=== PATIENT | male | born 1960 | race Caucasian/White ===

== ENCOUNTER 2016-07-19 19:35 | Outpatient (CLI) | payer OTHER | END 2016-07-19 19:36 | disposition home or self-care (01) | DX: G47.33 Obstructive sleep apnea (adult) (pediatric) (principal); G47.61 Periodic limb movement disorder; Z68.34 Body mass index [BMI] 34.0-34.9, adult ==

== ENCOUNTER 2016-09-14 14:47 | Outpatient (CLI) | payer OTHER | END 2016-09-14 14:48 | disposition home or self-care (01) | DX: G47.33 Obstructive sleep apnea (adult) (pediatric) (principal) ==

== ENCOUNTER 2016-11-23 15:13 | Outpatient (CLI) | payer OTHER | END 2016-11-23 15:14 | disposition home or self-care (01) | LOC: SC 15:13 | PROVIDERS: ATTEND Nurse Practitioner Family | DX: G47.33 Obstructive sleep apnea (adult) (pediatric) (principal) | CPT/HCPCS: 99212; 99213 ==

== ENCOUNTER 2019-06-15 10:20 | Outpatient (CLI) | payer OTHER ==
[2019-06-15 10:44] LABS: BASOPHILS # (AUTO) 0.1 10^3/uL (0.0-0.1); BASOPHILS % (AUTO) 0.6 %; EOSINOPHILS # (AUTO) 0.2 10^3/uL (0.0-0.7); EOSINOPHILS % (AUTO) 2.3 %; HGB - HEMOGLOBIN 15.2 g/dL (14.0-18.0); LYMPHOCYTES # (AUTO) 1.7 10^3/uL (1.5-3.5); LYMPHOCYTES % (AUTO) 19.6 %; MEAN CORPUSCULAR HEMOGLOBIN 30.5 pg (27.0-31.0); MEAN CORPUSCULAR HGB CONC 34.2 g/dL (32.0-36.0); MEAN CORPUSCULAR VOLUME 89.2 fL (80.0-94.0); MEAN PLATELET VOLUME 9.3 fL (7.4-11.4); MONOCYTES # (AUTO) 0.7 10^3/uL (0.0-1.0); NEUTROPHILS # (AUTO) 6.1 10^3/uL (1.5-6.6); NEUTROPHILS % (AUTO) 69.2 %; PLT - PLATELET COUNT 199 10^3/uL (130-450); RED BLOOD COUNT 4.98 10^6/uL (4.70-6.10); RED CELL DISTRIBUTION WIDTH 13.5 % (12.0-15.0); WHITE BLOOD COUNT 8.8 x10^3/uL (4.8-10.8)
[2019-06-15 11:05] LABS: ALBUMIN 4.4 g/dL (3.2-5.5); ALBUMIN/GLOBULIN RATIO 1.6 (1.0-2.2); BILIRUBIN,TOTAL 0.4 mg/dL (0.2-1.0); CALCIUM 9.8 mg/dL (8.5-10.3); CREATININE 0.7 mg/dL (0.6-1.2); TOTAL PROTEIN 7.2 g/dL (6.7-8.2)
== END 2019-06-15 10:21 | disposition home or self-care (01) ==
LOC: LAB 10:20
PROVIDERS: ATTEND Internal Medicine Gastroenterology
DX: I10 Essential (primary) hypertension (principal)
CPT/HCPCS: 36415; 80053; 85025

== ENCOUNTER 2019-06-26 12:41 | Day surgery (SDC) | payer OTHER ==
[2019-06-26] MEDS ORDERED: LACTATED RINGERS 1,000 ML IV ONE (13:06)
[2019-06-26] MEDS ORDERED: fentaNYL 250 MCG/5 ML VIAL IVP ONE (14:10)
[2019-06-26] MEDS ORDERED: MIDAZOLAM 2 MG/2 ML VIAL IVP ONE (14:10)
[2019-06-26 15:01] VITALS: BP 97/67
== END 2019-06-26 12:42 | disposition home or self-care (01) ==
LOC: SDS 12:41
PROVIDERS: ATTEND Internal Medicine Gastroenterology
PROC: 0DJD8ZZ Inspection of Lower Intestinal Tract, Via Natural or Artificial Opening Endoscopic (ICD-10-PCS; principal; 2019-06-26 14:15)
DX: Z12.11 Encounter for screening for malignant neoplasm of colon (principal); I10 Essential (primary) hypertension; F41.9 Anxiety disorder, unspecified; E66.9 Obesity, unspecified; Z68.38 Body mass index [BMI] 38.0-38.9, adult; M54.89 Other dorsalgia; F10.21 Alcohol dependence, in remission
CPT/HCPCS: 45378; J3010; J7120

== ENCOUNTER 2020-01-24 21:28 | Emergency (ER) | payer OTHER ==
--- NOTE | 2020-01-24 21:39 | ED Physician Documentation ---
History of Present Illness - Stated complaint Stated Complaint: HAND LACS - History obtained from History obtained from: Patient (59-year-old male who is right-hand dominant comes in tonight with a injury to 3 fingers of his left hand after he was using a table saw he has lacerations to the distal aspects of his second third and fourth fingers. Otherwise denies any other complaints.) - Additonal information Additional information: 59-year-old male was using a table saw tonight when he injured 3 fingers on his left hand. Denies any other complaints. Review of Systems Constitutional: reports: Reviewed and negative Eyes: reports: Reviewed and negative Ears: reports: Reviewed and negative Nose: reports: Reviewed and negative Throat: reports: Reviewed and negative Cardiac: reports: Reviewed and negative Respiratory: reports: Reviewed and negative GI: reports: Reviewed and negative : reports: Reviewed and negative Skin: reports: Reviewed and negative Musculoskeletal: reports: Other (left hand finger lacerations from table saw) Neurologic: reports: Reviewed and negative Psychiatric: reports: Reviewed and negative Endocrine: reports: Reviewed and negative Immunocompromised: reports: Reviewed and negative PD PAST MEDICAL HISTORY - Past Medical History Cardiovascular: Hypertension, High cholesterol Respiratory: None, Sleep apnea Endocrine/Autoimmune: None GI: GERD : None Psych: Anxiety - Past Surgical History Past Surgical History: Yes Ortho: Spine surgery - Present Medications Home Medications: Ambulatory Orders Medication Instructions Recorded Confirmed Benzonatate [Tessalon] 100 mg PO TID PRN #20 capsule 06/18/13 Felodipine [Felodipine ER] 10 mg PO DAILY 06/18/13 06/18/13 Olmesartan/Hydrochlorothiazide 1 each PO DAILY 06/18/13 06/18/13 [Benicar Hct 40-25 mg Tablet] Oseltamivir [Tamiflu] 75 mg PO BID #9 capsule 06/18/13 Sertraline HCl 50 mg PO DAILY 06/18/13 06/18/13 guaiFENesin/CODEINE [Robitussin AC] 10 ml PO Q6H PRN #120 ml 06/18/13 Cephalexin [Keflex] 500 mg PO QID 10 Days #40 capsule 01/25/20 HYDROcod/ACETAM 5/325 [[place] 5/325] 1 - 2 ea PO Q6H PRN #15 tablet 01/25/20 - Allergies Allergies/Adverse Reactions: Allergies Allergy/AdvReac Type Severity Reaction Status Date / Time No Known Drug Allergies Allergy Verified 06/18/13 11:39 - Social History Does the pt smoke?: No Smoking Status: Never smoker Does the pt drink ETOH?: Yes Does the pt have substance abuse?: No - POLST Patient has POLST: No PD ED PE NORMAL - Vitals Vital signs reviewed: Yes - General General: Alert and oriented X 3, No acute distress - HEENT HEENT: PERRL - Neck Neck: Supple, no meningeal sign - Cardiac Cardiac: RRR, No murmur - Respiratory Respiratory: Clear bilaterally - Abdomen Abdomen: Normal bowel sounds, Soft, Non tender, Non distended - Derm Derm: Warm and dry - Extremities Extremities: No deformity - Neuro Neuro: Alert and oriented X 3 - Psych Psych: Normal mood, Normal affect - Free text exam Free text exam: The index finger of the left hand has a distal laceration distal to the DIP join t there is some involvement of the nailbed. The compartments are soft sensations intact to light touch neurovascularly intact. The middle finger of the left hand has a more complex distal laceration with involvement of the nailbed and avulsion of tissue there is sensations intact light touch gamaliel rtments are soft full range of motion of all the fingers on passive and active range of motion at the DIP joints. The ring finger of the left hand has a superficial laceration distal to the DIP joint on the palmar aspect with no involvement of the nailbed. PD ED PE EXPANDED - Extremities VIOLET UE/Hands Visual: 1 - laceration 2 - laceration 3 - laceration 4 - laceration 5 - laceration Results - Vitals Vitals: Vital Signs - 24 hr 01/24/20 01/25/20 21:32 00:50 Temperature 36.4 C L Heart Rate 56 L 58 L Respiratory 16 18 Rate Blood Pressure 108/70 129/69 O2 Saturation 94 99 Oxygen O2 Source Room air Procedures - General procedure General procedure: Left hand of the middle finger there were 5 simple interrupted sutures using 4-0 nylon. The digit was anesthetized with 3 cc of 1% lidocaine using a digital block. With good anesthesia wound was thoroughly Ilich irrigated no foreign bodies identified there is no damage to the nailbed and the nail itself the wound edges were well approximated using 4 simple interrupted sutures using 4-0 nylon no foreign bodies identified wound was irrigated copiously with 500 cc of sterile saline.The index finger was anesthetized with 3 cc 1% lidocaine with epi using a digital block with good anesthesia achieved wound was thoroughly irrigated no foreign bodies identified there is damage to the nailbed the wound was closed using 4 simple interrupted sutures using 4-0 nylon. With good wound edge approximation. The laceration to the distal aspect of the ring finger is superficial in nature it was thoroughly irrigated no foreign bodies identified bacitracin was applied and tube gauze dressing was applied to all 3 digits postanesthesia and suture repair he is neurovascular intact his compartments are soft. Is able to flex and extend at all of the IP joints on passive and active range of motion. PD MEDICAL DECISION MAKING - ED course Complexity details: considered differential (2,3,4th distal finger lacerations to left hand. distal phalange fractures) - Consults Consults: Consulted (name) (dr. francisco.), Discussed case with (dr. francisco. recommends to loosely approximate tissue, update tetanus, abx, dressing and he will see in clinic today for more definitive repair.) Departure - Departure Disposition: 01 Home, Self Care Clinical Impression: Laceration of finger of left hand Qualifiers: Encounter type: initial encounter Finger: unspecified finger Damage to nail status: with damage Foreign body presence: unspecified Qualified Code(s): S61.319A - Laceration without foreign body of unspecified finger with damage to nail, initial encounter Laceration of multiple sites of left hand and fingers Qualifiers: Encounter type: initial encounter Qualified Code(s): S61.412A - Laceration without foreign body of left hand, initial encounter; S61.219A - Laceration without foreign body of unspecified finger without damage to nail, initial encounter Fracture, finger, distal phalanx, open Qualifiers: Encounter type: initial encounter Finger: middle finger Fracture alignment: displaced Laterality: left Qualified Code(s): S62.633B - Displaced fracture of distal phalanx of left middle finger, initial encounter for open fracture Condition: Stable Instructions: ED Laceration Hand Follow-Up: KRUNAL SPRAGUE ARNP [Primary Care Provider] - Hank Francisco MD [Provider Admit Priv/Credential] - 01/25/20 Prescriptions: Cephalexin [Keflex] 500 mg PO QID 10 Days #40 capsule HYDROcod/ACETAM 5/325 [[place] 5/325] 1 - 2 ea PO Q6H PRN #15 tablet PRN Reason: Pain Comments: call the orthopedic surgeon today to schedule follow up today. take antibiotics as directed. Discharge Date/Time: 01/25/20 01:00
[2020-01-24] MEDS ORDERED: TETANUS/DIPHTHERIA/PERTUSSIS 0.5 ML SYRINGE IM ONE (21:46)
[2020-01-24] MEDS ORDERED: BACITRACIN ZINC OINT 1 PACKET TOP STA (21:49)
[2020-01-24] MEDS ORDERED: LIDOCAINE 1%-EPI 1:100000 20 ML MDV SUBQ STA (22:50)
[2020-01-25] MEDS ORDERED: cephALEXin 250 MG CAPSULE PO STA (00:21)
[2020-01-25] MEDS ORDERED: HYDROcod/ACETAM 5/325 MG TABLET PO STA (00:21)
[2020-01-25] MEDS ORDERED: BACITRACIN ZINC OINT 1 PACKET TOP STA (00:25)
[2020-01-25 00:50] VITALS: BP 129/69
--- NOTE | 2020-01-25 07:57 | XRAY Report ---
PROCEDURE: Hand 3 View LT INDICATIONS: fingers vs table saw [exam sent to [facility]] TECHNIQUE: 3 views of the hand(s) acquired. COMPARISON: None FINDINGS: Bones: Markedly comminuted shaft and distal tuft fracture of the distal phalanx of the third finger. Comminuted distal tuft fracture of the distal phalanx of the second finger. No suspicious bony lesion s. Soft tissues: No suspicious soft tissue calcifications. Soft tissue lacerations associated with the second and third digit distal phalanx fractures. IMPRESSION: Fractures of the distal phalanges of the second and third fingers with associated soft tissue lacerat ions. A preliminary report with the above findings was provided at the time of the study by [facility]. Reviewed by: Westley Medellin MD on 01/25/2020 7:56 AM PDT Approved by: Westley Medellin MD on 01/25/2020 7:56 AM PDT Station ID: [id number]
== END 2020-01-25 01:00 | disposition home or self-care (01) ==
LOC: ED 21:28
DX: S62.631B Displaced fracture of distal phalanx of left index finger, initial encounter for open fracture (principal); S62.633B Displaced fracture of distal phalanx of left middle finger, initial encounter for open fracture; S61.215A Laceration without foreign body of left ring finger without damage to nail, initial encounter; W31.2XXA Contact with powered woodworking and forming machines, initial encounter; I10 Essential (primary) hypertension; E78.00 Pure hypercholesterolemia, unspecified
CPT/HCPCS: 12002; 73130; 90471; 90715; 99283; A9270

== ENCOUNTER 2020-03-01 07:40 | Outpatient (CLI) | payer OTHER ==
--- NOTE | 2020-03-01 13:53 | XRAY Report ---
PROCEDURE: Hand 3 View LT INDICATIONS: LEFT HAND LACERATION TECHNIQUE: 3 views of the hand(s) acquired. COMPARISON: None FINDINGS: Bones: Comminuted fracture of the third distal phalange with fracture lucencies extending into the DI P joint. Small avulsion fracture of the tuft of the second distal phalange. Soft tissues: No suspicious soft tissue calcifications. IMPRESSION: 1. Comminuted, intra-articular third distal phalange fracture. 2. Avulsion fracture of the tuft of the second distal phalange. Reviewed by: Jody Calhoun MD, PhD on 03/01/2020 1:51 PM PDT Approved by: Jody Calhoun MD, PhD on 03/01/2020 1:51 PM PDT Station ID: [id number]
== END 2020-03-01 07:41 | disposition home or self-care (01) ==
LOC: DI.WCP 07:40
PROVIDERS: ATTEND Orthopaedic Surgery
DX: S61.412A Laceration without foreign body of left hand, initial encounter (principal); S62.633A Displaced fracture of distal phalanx of left middle finger, initial encounter for closed fracture; S62.631A Displaced fracture of distal phalanx of left index finger, initial encounter for closed fracture

== ENCOUNTER 2020-03-29 10:47 | Outpatient (CLI) | payer OTHER ==
--- NOTE | 2020-03-29 10:51 | XRAY Report ---
PROCEDURE: Hand 3 View LT INDICATIONS: LEFT HAND FRACTURE TECHNIQUE: 3 views of the hand(s) acquired. COMPARISON: 03/01/2020, 01/24/2020 FINDINGS: Bones: Comminuted fractures of the second and third distal phalanges are redemonstrated. The second d istal phalanx fracture through the tuft has not significantly changed, again with no union of the oss eous fragments. With regard to the third distal phalanx, there is some osseous union across the domin ant fracture plane traversing obliquely through the diaphysis. Small fragments of the tuft not signif icantly healed. Soft tissues: No suspicious soft tissue calcifications. IMPRESSION: Second and third distal phalanx fractures involving the adela is described above, no significant rivera ge with regard to the second distal phalanx fractures. Some interval healing of the third distal phal anx fractures as described above, with small tuft fragments unchanged. Reviewed by: Darrell English MD on 03/29/2020 10:50 AM PDT Approved by: Darrell English MD on 03/29/2020 10:50 AM PDT Station ID: [id number]
== END 2020-03-29 23:59 | disposition home or self-care (01) ==
LOC: DI.WCP 10:47
PROVIDERS: ATTEND Physician Assistant
DX: S62.631A Displaced fracture of distal phalanx of left index finger, initial encounter for closed fracture (principal); S62.633A Displaced fracture of distal phalanx of left middle finger, initial encounter for closed fracture